=== PATIENT | male | born 1960 | race Caucasian/White ===

== ENCOUNTER 2018-02-03 19:42 | Emergency (ER) | payer OTHER ==
[~2018-02-03] VITALS: Ht 177.8 cm; Wt 86.2 kg
[~2018-02-03 19:42] MED LIST: ACETAMINOPHEN-1 EAC1 PO; ADDERALL 20 MG20 MG PO; ASPIR 8181 MG PO; BACTRIM DS TAB1 EACH PO; CELEXA 20 MG TA20 M1 PO; CELEXA40 MG PO; DOXYCYCLINE 10100 MG PO; ERYTHROMYCIN E3.5 G1 OPHTHALMIC; HYDROCODONE-AP1 EAC6 PO; IBUPROFEN 800800 M1 PO; IBUPROFEN 800800 MG PO; LORTAB 7.5/5001 TA1 PO; MEDROLDOSEPACK PO; NOHOMEMEDICATIONS; NORCO 5-325 TA1 EACH PO
[2018-02-03 20:55] VITALS: BP 138/94
== END 2018-02-03 20:56 | disposition home or self-care (01) ==
LOC: M.ERS 19:42
DX: H60.92 Unspecified otitis externa, left ear (principal); I10 Essential (primary) hypertension; F17.210 Nicotine dependence, cigarettes, uncomplicated

== ENCOUNTER 2018-06-06 17:20 | Emergency (ER) | payer OTHER ==
[~2018-06-06] VITALS: Ht 177.8 cm; Wt 83.5 kg
[2018-06-06] MEDS ORDERED: CELEXA40 MG PO (17:24)
[2018-06-06] MEDS ORDERED: ADDERALL 20 MG20 M1 PO (17:24)
[2018-06-06 17:43] LABS: ABSOLUTE BASOPHILS 0.1 thou/uL (0.0-0.2); ABSOLUTE EOSINOPHILS 0.1 thou/uL (0.0-0.7); ABSOLUTE NEUTROPHILS 5.7 thou/uL (1.6-8.1); BASOPHILS 0.9 %; EOSINOPHILS 1.4 %; HEMATOCRIT 44.5 % (42.0-52.0); HEMOGLOBIN 15.3 gm/dL (14.0-18.0); LYMPHOCYTES 22.7 %; MCH 31.8 pg (26.0-34.0); MCHC 34.4 g/dL (28.0-37.0); MCV 92.6 fL (80.0-100.0); MONOCYTES 11.1 %; MPV 7.8 fl. (7.2-11.1); NUCLEATED RBCS 0 /100WBC; PLATELET COUNT* 271 thou/uL (150-400); POLYS 63.9 %; RDW-CV 13.2 % (10.5-14.5); WBC 8.9 thou/uL (4.0-11.0)
[2018-06-06 17:52] LABS: ANION GAP 9 mmol/L (7-16); BUN 16 mg/dL (7-18); CALCIUM 8.7 mg/dL (8.5-10.1); CHLORIDE 106 mmol/L (98-107); CO2 28 mmol/L (21-32); CREATININE 0.9 mg/dL (0.6-1.3); GLUCOSE 89 mg/dL (70-99); POTASSIUM 3.3 mmol/L (3.5-5.1); SODIUM 143 mmol/L (136-145)
[2018-06-06 17:55] LABS: APTT 27.5 Seconds (25.0-31.3); PROTIME 10.5 Seconds (9.20-11.50)
[2018-06-06 18:15] LABS: ALBUMIN 3.9 g/dL (3.4-5.0); ALKALINE PHOSPHATASE 118 U/L (46-116); LIPASE 80 U/L (73-393); MAGNESIUM 2.1 mg/dL (1.8-2.4); NT-PRO BRAIN NAT PEPTIDE 72 pg/mL (<300); SGOT 19 U/L (15-37); SGPT 26 U/L (30-65); TOTAL BILIRUBIN 0.4 mg/dL (<0.1-1.0); TOTAL PROTEIN 7.6 g/dL (6.4-8.2); TROPONIN-I LEVEL <0.06 ng/mL (<0.06)
[2018-06-06 18:28] VITALS: BP 160/86
--- NOTE | 2018-06-07 18:05 | EKG ---
[place] [address] ELECTROCARDIOGRAM REPORT Name: GIULIANA LUO Room: [facility]#: [id number] Admission: 06/06/18 Attend Phys: Discharge: 06/06/18 Date of : 58 Report #: [id number] THIS REPORT FOR: //name// [facility] ED Test Date: 2018-06-06 Test Time: 17:27:26 Pat Name: GIULIANA LUO Department: Room: Gender: M Manager Skilled: [place] : 1960 Requested By: Jalil Chiu Order Number: [id number] MD: Alber Hinds Measurements Intervals [place] Rate: 85 P: 52 [place]: 147 QRS: -27 QRSD: 101 T: 49 QT: 384 QTc: 457 Interpretive Statements Sinus rhythm Possible left atrial enlargement Borderline left axis deviation RSR' in V1 or V2, probably normal variant Minimal ST elevation, anterior leads No previous ECG available for comparison Electronically Signed On 06-07-2018 18:05:03 PILLOWCASE [employer] by Alber Hinds [email or web address] <ELECTRONICALLY SIGNED> By: Alber Hinds MD, [facility] 06/07/18 1805 172 26 Alber Hinds MD, FAC /EPI
== END 2018-06-06 18:29 | disposition left against medical advice (07) ==
LOC: M.ERS 17:20
PROVIDERS: Family Medicine
DX: R07.89 Other chest pain (principal); F17.210 Nicotine dependence, cigarettes, uncomplicated; I10 Essential (primary) hypertension

== ENCOUNTER 2020-12-12 08:30 | Inpatient (IN) | payer OTHER ==
[~2020-12-12] VITALS: Ht 180.3 cm; Wt 86.2 kg
[~2020-12-12 08:30] MED LIST changes: +ADDERALL 20 MG20 M1 PO
[2020-12-12 08:47] VITALS: BP 143/97
[2020-12-12 09:20] LABS: ABSOLUTE BASOPHILS 0.1 thou/uL (0.0-0.2); ABSOLUTE EOSINOPHILS 0.2 thou/uL (0.0-0.7); ABSOLUTE LYMPHOCYTES 1.9 thou/uL (0.8-5.3); ABSOLUTE MONOCYTES 0.7 thou/uL (0.0-1.2); BASOPHILS 1.1 %; EOSINOPHILS 2.4 %; HEMATOCRIT 51.9 % (42.0-52.0); HEMOGLOBIN 17.8 gm/dL (14.0-18.0); MCH 31.3 pg (26.0-34.0); MCHC 34.2 g/dL (28.0-37.0); MCV 91.4 fL (80.0-100.0); MONOCYTES 8.9 %; MPV 7.5 fl. (7.2-11.1); NUCLEATED RBCS 0 /100WBC; PLATELET COUNT* 268 thou/uL (150-400); POLYS 63.6 %; RBC 5.68 mil/uL (4.50-6.00); RDW-CV 13.5 % (10.5-14.5); WBC 7.9 thou/uL (4.0-11.0)
[2020-12-12 09:29] LABS: CALCIUM 8.8 mg/dL (8.5-10.1); CREATININE 1.1 mg/dL (0.6-1.3); POTASSIUM 3.9 mmol/L (3.5-5.1)
[2020-12-12 09:34] LABS: ALBUMIN 4.1 g/dL (3.4-5.0); TOTAL BILIRUBIN 0.7 mg/dL (<0.1-1.0); TOTAL PROTEIN 8.2 g/dL (6.4-8.2)
--- NOTE | 2020-12-12 09:48 | EKG ---
[place] [address] ELECTROCARDIOGRAM REPORT Name: GIULIANA LUO Room: [facility]#: [id number] Admission: 12/12/20 Attend Phys: Discharge: Date of : 58 Date of Service: 12/12/20927 Report #: [id number] THIS REPORT FOR: //name// [facility] ED Test Date: 2020-12-12 Test Time: 09:28:08 Pat Name: GIULIANA LUO Department: Room: Gender: Commodity Buyer: : 1960 Requested By: Otto Shaw Order Number: [id number] MD: Saad Sanchez Measurements Intervals [place] Rate: 65 P: 27 [place]: 155 QRS: -43 QRSD: 106 T: 35 QT: 419 QTc: 436 Interpretive Statements Sinus rhythm Left anterior fascicular block Left ventricular hypertrophy Compared to ECG 06/06/2018 17:27:26 Left ventricular hypertrophy now present ST (T wave) deviation no longer present Electronically Signed On 12-12-2020 9:48:41 CDT by Saad Sanchez [email or web address] <ELECTRONICALLY SIGNED> By: Saad Sanchez MD, [facility] 12/12/20 0948 7 Saad Sanchez MD, [facility] /EPI
[2020-12-12 11:25] LABS: URINE BILIRUBIN NEGATIVE (Negative); URINE BLOOD NEGATIVE (Negative); URINE CLARITY CLEAR; URINE COLOR YELLOW; URINE GLUCOSE-RANDOM NEGATIVE (Negative); URINE KETONES NEGATIVE (Negative); URINE LEUKOCYTES-REFLEX NEGATIVE (Negative); URINE NITRITE-REFLEX NEGATIVE (Negative); URINE PROTEIN NEGATIVE (Negative); URINE SPECIFIC GRAVITY 1.025 (1.005-1.030)
[2020-12-12] MEDS ORDERED: ZOFRAN ODT4 MG DISSOLVE (12:36)
[2020-12-12] MEDS ORDERED: TRAMADOL 50 MG50 MG PO (12:36)
[2020-12-12 13:17] VITALS: BP 155/100
[2020-12-12] MEDS ORDERED: NORCO5 PO (16:56)
[2020-12-12 16:59] VITALS: BP 155/100
--- NOTE | 2020-12-13 17:05 | OP ---
[facility] [address] [place] [address] OPERATIVE REPORT Name: PUJAGIULIANA Room: [address] [place] .R.#: [id number] Admission: 12/12/20 Attend Phys: Je De Leon Discharge: 12/12/20 Date of : 58 Report #: [id number] THIS REPORT FOR: cc: FAM - No family physician/PCP FAM - No family physician/PCP Je De Leon MD ~ DATE OF SURGERY: 12/12/2020 PREOPERATIVE DIAGNOSIS: Symptomatic cholelithiasis. POSTOPERATIVE DIAGNOSIS: Symptomatic cholelithiasis. OPERATION: Laparoscopic cholecystectomy. SURGEON: Je De Leon MD. ANESTHESIA: General. ESTIMATED BLOOD LOSS: Minimal. SPECIMENS: Gallbladder. DESCRIPTION OF PROCEDURE: After informed consent was obtained, the patient was brought to the operating room and placed supine. SCDs were placed and working, preoperative antibiotics were administered, general anesthesia was induced. The abdomen was prepped and draped in the usual sterile fashion. A 10 mm incision was made below the umbilicus. Fascia was incised and a trocar was placed. Pneumoperitoneum was established. Three right upper quadrant 5 mm ports were placed. Gallbladder was grasped at the fundus and retracted cephalad. Infundibulum was grasped and retracted laterally. I dissected out the cystic duct and cystic artery. I dissected out the cystic plate. Cystic duct and artery were clipped and ligated leaving 2 clips and a PDS Endoloop on the remaining cystic duct. Cystic artery was clipped and ligated with a single clip. Gallbladder was then taken off the liver bed with electrocautery. It was placed into an Endopouch and removed. The fascia was then closed with a [id number] 0 Vicryl. Skin was closed with 4-0 Monocryl. Incisions were dressed with Steri-Strips. COMPLICATIONS: None. DISPOSITION: The patient was taken to recovery in satisfactory condition. <ELECTRONICALLY SIGNED> By: Je De Leon MD 12/13/20 1705 1625 [id number] De Leon MD /nt
== END 2020-12-12 18:35 | disposition home or self-care (01) | DRG 419 ==
LOC: M.ERS 08:30 → M.TBA-ER 12:45
PROVIDERS: Emergency Medicine Emergency Medical Services; ADMIT Surgery; ATTEND Surgery
PROC: 0FT44ZZ Resection of Gallbladder, Percutaneous Endoscopic Approach (ICD-10-PCS; principal; 2020-12-12)
DX: K80.70 Calculus of gallbladder and bile duct without cholecystitis without obstruction (principal); I10 Essential (primary) hypertension; F17.210 Nicotine dependence, cigarettes, uncomplicated; Z20.822 Contact with and (suspected) exposure to COVID-19